=== PATIENT | male | born 1995 | race Caucasian/White ===

== ENCOUNTER 2016-12-29 16:08 | Emergency (ER) | payer OTHER ==
[~2016-12-29] VITALS: Ht 175.3 cm; Wt 66.2 kg
[2016-12-29 16:10] VITALS: BP 121/59; PULSE 105; RESP 16; TEMP 99.2; O2SAT 100
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
[2016-12-29] MEDS ORDERED: ROBA500T PO (17:43)
== END 2016-12-29 17:51 | disposition home or self-care (01) ==
LOC: PHEFT 16:08 → NEPA 17:51
DX: S13.4XXA Sprain of ligaments of cervical spine, initial encounter (principal); V43.52XA Car driver injured in collision with other type car in traffic accident, initial encounter
CPT/HCPCS: 70450; 72125; 99285

== ENCOUNTER 2016-12-31 14:39 | Emergency (ER) | payer SELFPAY ==
[~2016-12-31] VITALS: Ht 175.3 cm; Wt 66.2 kg
[~2016-12-31 14:39] MED LIST: ROBA500T PO
[2016-12-31 14:50] VITALS: BP 122/71; PULSE 63; RESP 16; TEMP 99.2; O2SAT 100
[2016-12-31] MEDS ORDERED: DIAZ5 PO (15:21)
[2016-12-31] MEDS ORDERED: ULTR50TA5 PO (15:21)
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
== END 2016-12-31 15:39 | disposition home or self-care (01) ==
LOC: PHED 14:39
DX: G44.319 Acute post-traumatic headache, not intractable (principal); F17.200 Nicotine dependence, unspecified, uncomplicated; S16.1XXD Strain of muscle, fascia and tendon at neck level, subsequent encounter; V89.2XXD Person injured in unspecified motor-vehicle accident, traffic, subsequent encounter
CPT/HCPCS: 99284